=== PATIENT | female | born 1990 | race Caucasian/White ===

== ENCOUNTER 2017-04-03 07:10 | Emergency (ER) | payer OTHER ==
--- NOTE | 2017-04-03 07:36 | PD ---
HPI Chief Complaint: Sprague Act Time Seen by Provider: 07:30 Travel History International Travel<30 days: No Contact w/Intl Traveler<30days: No History of Present Illness HPI 26-year-old Kitt[place] female, brought in by police under the Sprague act. Patient was reportedly "cutting her forearms and wrists" with a safety pin. Patient denies suicidal ideation. Patient does admit that she may be depressed however. Patient recently moved here from [place] with her new baby's father approximately 1 month ago. Patient states she is 3 months status post which is well-healed. Patient states she is wanting to move back to [place], but her baby's father wants to stay here in [place]. Patient denies any other medical issues currently. She denies cutting anywhere about her forearms bilaterally with a safety pin. Patient is allergic to penicillin.. PFSH Social History Alcohol Use: No Tobacco Use: No Substance Use: No Review of Systems Except as stated in HPI: all other systems reviewed are Neg General / Constitutional: No: Fever, Chills Eyes: No: Visual changes HENT: No: Headaches Cardiovascular: No: Chest Pain or Discomfort Respiratory: No: Cough, Shortness of Breath Gastrointestinal: No: Nausea, Vomiting, Diarrhea, Abdominal Pain Genitourinary: No: Urgency, Frequency, Dysuria, Vaginal Bleeding Musculoskeletal: No: Pain Skin: Positive Lesions (See history of present illness), No Rash Neurologic: No: Weakness Psychiatric: Positive: Depression, No: Anxiety, Suicidal Ideations, Disorder of Thought, Mood Disorder, Substance Abuse, Homicidal Ideation Endocrine: No: Polydipsia Hematologic/Lymphatic: No: Easy Bruising Physical Exam Narrative GENERAL: The patient appears sad but otherwise in no acute distress SKIN: Warm and dry. Normal color. Normal turgor. Patient has multiple very superficial abrasions to both forearms from safety needle. These are not bleeding. They do not require bandaging or any type of closure. Patient has a well-healed scar in the lower abdomen. HEAD: Atraumatic. Normocephalic. EYES: Pupils equal and round. No scleral icterus. No injection or drainage. ENT: No nasal bleeding or discharge. Mucous membranes pink and moist. Pharynx is clear. Airway is patent. NECK: Trachea midline. No JVD. CARDIOVASCULAR: Regular rate and rhythm. RESPIRATORY: No accessory muscle use. Clear to auscultation. Breath sounds equal bilaterally. GASTROINTESTINAL: Abdomen soft, non-tender, nondistended. Hepatic and splenic margins not palpable. MUSCULOSKELETAL: Extremities without clubbing, cyanosis, or edema. No obvious deformities. NEUROLOGICAL: Awake and alert. No obvious cranial nerve deficits. Motor grossly within normal limits. Five out of 5 muscle strength in the arms and legs. Normal speech. PSYCHIATRIC: Appropriate mood and affect; insight and judgment normal. Data Data Orders Orders Complete Blood Count With Diff (04/03/17 07:15) Comprehensive Metabolic Panel (04/03/17 07:15) Thyroid Stimulating Hormone (04/03/17 07:15) Urinalysis - C+S If Indicated (04/03/17 07:15) Psych Screen (04/03/17 07:15) Drug Screen, Random Urine (04/03/17 07:15) Alcohol (Ethanol) (04/03/17 07:15) MDM Medical Decision Making Medical Screen Exam Complete: Yes Emergency Medical Condition: Yes Differential Diagnosis Sprague act. Depression. Suicidal ideation. . Multiple life stressors. Narrative Course Patient is medically stable at time of exam Labs ordered as per protocol including urine test. Patient is medically cleared for psychiatric evaluation. Condition: Stable En Stein Apr 03, 2017 07:36
[2017-04-03 08:04] VITALS: BP 120/81; PULSE 80; RESP 15; TEMP 98; O2SAT 99
[2017-04-03 08:06] LABS: AUTOMATED NEUTROPHIL # 4.6 TH/MM3 (1.8-7.7); BASOPHIL % 0.2 % (0.0-2.0); EOSINOPHIL # 0.1 TH/MM3 (0-0.4); EOSINOPHIL % 1.5 % (0.0-4.0); HEMATOCRIT 39.2 % (35.0-46.0); HEMOGLOBIN 13.2 GM/DL (11.6-15.3); LYMPH % 25.7 % (9.0-44.0); LYMPHOCYTE # 1.8 TH/MM3 (1.0-4.8); MEAN CELL VOLUME 88.4 FL (80.0-100.0); MEAN CORPUSCULAR HEMOGLOBIN 29.7 PG (27.0-34.0); MEAN CORPUSCULAR HGB CONC 33.6 % (32.0-36.0); MEAN PLATELET VOLUME 10.1 FL (7.0-11.0); MONO % 7.3 % (0.0-8.0); MONOCYTE # 0.5 TH/MM3 (0-0.9); NEUT % 65.3 % (16.0-70.0); PLATELET COUNT 236 TH/MM3 (150-450); RED BLOOD COUNT 4.43 MIL/MM3 (4.00-5.30); RED CELL DISTRIBUTION WIDTH 15.3 % (11.6-17.2)
[2017-04-03 08:10] LABS: BACTERIA, URINE MANY /hpf; BILIRUBIN, URINE NEG (NEG); BLOOD, URINE NEG (NEG); GLUCOSE,URINE NEG (NEG); KETONE, URINE NEG (NEG); MUCUS URINE FEW /lpf (OCC); NITRITE,URINE POS (NEG); SQUAMOUS EPITHELIAL CELL URINE <1 /hpf (0-5); URINE COLOR YELLOW (YELLW/STRAW); URINE LEUKOCYTE ESTERASE NEG (NEG)
[2017-04-03 08:28] LABS: ALBUMIN 3.9 GM/DL (3.4-5.0); ALT (GPT) 18 U/L (10-53); AST (GOT) 6 U/L (15-37); BICARBONATE 23.4 MEQ/L (21.0-32.0); BLOOD UREA NITROGEN 13 MG/DL (7-18); CALCIUM 8.6 MG/DL (8.5-10.1); CHLORIDE 109 MEQ/L (98-107); CREATININE 0.46 MG/DL (0.50-1.00); GLOMERULAR FILTRATION RATE 162 ML/MIN (>89); GLUCOSE,RANDOM 91 MG/DL (74-106); SODIUM (NA) 141 MEQ/L (136-145)
[2017-04-03 08:38] LABS: ALKALINE PHOSPHATASE 76 U/L (45-117); TOTAL BILIRUBIN ADULT 0.3 MG/DL (0.2-1.0); TOTAL PROTEIN 7.3 GM/DL (6.4-8.2)
[2017-04-03] MEDS ORDERED: CEPH-460 PO (09:29)
--- NOTE | 2017-04-03 13:54 | PD.PSY.CON ---
Provisional Diagnosis Admission Date Benedict I. Adjustment disorder with depressed mood Benedict II. Deferred Benedict III. No significant medical history Benedict IV. Conflicts with her Benedict V. 60 History of Present Illness Service Psychiatry Consult Requested By ER team Reason for Consult Sprague at Primary Care Physician No Primary Care Physician HPI The patient was seen April 03, 2017 at 8:30 AM The patient is a 26-year-old [place] woman, domiciled with her in a hotel in [facility], she is originally from [place], unemployed, supported by her , mother of 3 kids, no previous psychiatric history, no previous suicidal attempts, no hospitalizations, history of self cutting behavior with no SI, as a way to cope with anxiety, cannabis use disorder, no significant medical history, who was brought in by police under the Sprague act. Patient was reportedly "cutting her forearms and wrists" with a safety pin to release anxiety. The patient was brought to the ER under Sprague act due to suicidal behavior after an argument with her . Chart was reviewed. Patient was seen in the main ER, she was accompanied with her 9 months old baby and with her . On psychiatric evaluation the patient is calm, cooperative, very pleasant. The patient reports that she has been under some stress with her because he has not been working steadily, he has been afraid of becoming homeless, and she has been asking him to let her go back to live with her mother [place] and he has been refusing. This morning they engage in an argument, she feels distressed, and expressed suicidal statement, but she doesn' t really mean that. The patient denies suicidal and homicidal ideation, she denies visual and auditory hallucinations. The patient says that she has 2 living with his father in [place], she has her 9 most all baby that she loves and has to take care of. No paranoia, no delusions, no agitation or aggressive behavior present. The patient denies the use of alcohol, she reports almost daily use of cannabis. I spoke with her Angus Mazariegos, with states that he doesn't really have any safety concern at this moment and he would feel safe taking his back with him watching her. Review of Systems Constitutional: DENIES: Diaphoretic episodes, Fatigue, Fever, Weight gain, Weight loss, Chills, Dizziness, Change in appetite, Night Sweats Endocrine: DENIES: Abnorml menstrual pattern, Heat/cold intolerance, Polydipsia , Polyuria, Polyphagia Eyes: DENIES: Blurred vision, Diplopia, Eye inflammation, Eye pain, Vision loss , Photosensitivity, Double Vision Ears, nose, mouth, throat: DENIES: Tinnitus, Hearing loss, Vertigo, Nasal discharge, Oral lesions, Throat pain, Hoarseness, Ear Pain, Running Nose, Epistaxis, Sinus Pain, Toothache, Odynophagia Respiratory: DENIES: Apneas, Cough, Snoring, Wheezing, Hemoptysis, Sputum production, Shortness of breath Cardiovascular: DENIES: Chest pain, Palpitations, Syncope, Dyspnea on Exertion , PND, Lower Extremity Edema, Orthopnea, Claudication Gastrointestinal: DENIES: Abdominal pain, Black stools, Bloody stools, Constipation, Diarrhea, Nausea, Vomiting, Difficulty Swallowing, Anorexia Genitourinary: DENIES: Abnormal vaginal bleeding, Dysmenorrhea, Dyspareunia, Sexual dysfunction, Urinary frequency, Urinary incontinence, Urgency, Hematuria , Dysuria, Nocturia, Vaginal discharge Musculoskeletal: DENIES: Joint pain, Muscle aches, Stiffness, Joint Swelling, Back pain, Neck pain Integumentary: DENIES: Abnormal pigmentation, Pruritus, Rash, Nail changes, Breast masses, Breast skin changes, Nipple discharge Hematologic/lymphatic: DENIES: Bruising, Lymphadenopathy Immunologic/allergic: DENIES: Eczema, Urticaria Neurologic: DENIES: Abnormal gait, Headache, Localized weakness, Paresthesias, Seizures, Speech Problems, Tremor, Poor Balance Psychiatric: DENIES: Anxiety, Confusion, Mood changes, Depression, Hallucinations, Agitation, Suicidal Ideation, Homicidal Ideation, Delusions Past Family Social History Coded Allergies: amoxicillin (Verified Allergy, Intermediate, Swelling, 04/03/17) codeine (Verified Allergy, Intermediate, Swelling, 04/03/17) Active Scripts Cephalexin (Keflex) 500 Mg Cap, 500 MG PO Q8H for Infection for 7 Days, #21 CAP 0 Refills Prov:Kartik Buck MD 04/03/17 Family Psych History No family psychiatric history Social History Patient was born and raised in [place], she now lives in [place], he is hear [facility] living in a hotel 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 2) No previous significant history Physical Exam No tremors, no EPS, Vital Signs Vital Signs Date Time Temp Pulse Resp B/P (MAP) Pulse Ox O2 Delivery O2 Flow Rate FiO2 04/03/17 09:25 04/03/17 08:04 98.0 80 15 99 Room Air Lab Results Test 04/03/17 07:30 White Blood Count 7.0 TH/MM3 Red Blood Count 4.43 MIL/MM3 Hemoglobin 13.2 GM/DL Hematocrit 39.2 % Mean Corpuscular Volume 88.4 FL Mean Corpuscular Hemoglobin 29.7 PG Mean Corpuscular Hemoglobin Concent 33.6 % Red Cell Distribution Width 15.3 % Platelet Count 236 TH/MM3 Mean Platelet Volume 10.1 FL Neutrophils (%) (Auto) 65.3 % Lymphocytes (%) (Auto) 25.7 % Monocytes (%) (Auto) 7.3 % Eosinophils (%) (Auto) 1.5 % Basophils (%) (Auto) 0.2 % Neutrophils # (Auto) 4.6 TH/MM3 Lymphocytes # (Auto) 1.8 TH/MM3 Monocytes # (Auto) 0.5 TH/MM3 Eosinophils # (Auto) 0.1 TH/MM3 Basophils # (Auto) 0.0 TH/MM3 CBC Comment DIFF FINAL Differential Comment Urine Color YELLOW Urine Turbidity CLEAR Urine pH 6.0 Urine Specific [place] 1.025 Urine Protein NEG mg/dL Urine Glucose (UA) NEG mg/dL Urine Ketones NEG mg/dL Urine Occult Blood NEG Urine Nitrite POS Urine Bilirubin NEG Urine Urobilinogen LESS THAN 2.0 MG/DL Urine Leukocyte Esterase NEG Urine RBC 1 /hpf Urine WBC 3 /hpf Urine Squamous Epithelial Cells <1 /hpf Urine Bacteria MANY /hpf Urine Mucus FEW /lpf Microscopic Urinalysis Comment CULTURE INDICATED Blood Urea Nitrogen 13 MG/DL Creatinine 0.46 MG/DL Random Glucose 91 MG/DL Total Protein 7.3 GM/DL Albumin 3.9 GM/DL Calcium Level 8.6 MG/DL Alkaline Phosphatase 76 U/L Aspartate Amino Transf (AST/SGOT) 6 U/L Alanine Aminotransferase (ALT/SGPT) 18 U/L Total Bilirubin 0.3 MG/DL Sodium Level 141 MEQ/L Potassium Level 3.6 MEQ/L Chloride Level 109 MEQ/L Carbon Dioxide Level 23.4 MEQ/L Anion Gap 9 MEQ/L Estimat Glomerular Filtration Rate 162 ML/MIN Thyroid Stimulating Hormone 3rd Gen 1.470 uIU/ML Urine Opiates Screen NEG Urine Barbiturates Screen NEG Urine Amphetamines Screen NEG Urine Benzodiazepines Screen NEG Urine Cocaine Screen NEG Urine Cannabinoids Screen POS Ethyl Alcohol Level LESS THAN 3 MG/DL Date/Time Source Procedure Growth Status 04/03/17 07:30 Urine Random Urine Urine Culture Pending Received Mental Status Examination Appearance: Appropriate Consciousness: Alert Orientation: x4 Motor Activity: Normal gait Speech: Unremarkable Language: Adequate Fund of Knowledge: Adequate Attention and Concentration: Adequate Memory: Unremarkable Mood: Appropriate Affect: Appropriate Thought Process & Associations: Intact Thought Content: Appropriate Hallucination Type: None Delusion Type: None Suicidal Ideation: No Suicidal Plan: No Suicidal Intention: No Homicidal Ideation: No Homicidal Plan: No Homicidal Intention: No Insight: Adequate Judgment: Adequate Assessment & Plan Problem List: (1) Adjustment disorder with disturbance of conduct ICD Codes: F43.24 - Adjustment disorder with disturbance of conduct Assessment & Plan: On psychiatric evaluation today the patient doesn't present any acute, concerning for significant objective or subjective symptomatology of depression, anxiety, boom or psychosis. She denies suicidal and homicidal ideation, she denies visual and auditory hallucinations. Her recent suicidal gesture/self cutting behavior seems to be a maladaptive coping skills to release anxiety and no suicidal attempt. Patient has some very well identifiable protective factors. She does not meet criteria for involuntary psychiatric admission at this moment. Brief supportive psychotherapy provided. Sprague act will be lifted. Assessment & Plan Estimated LOS: Arnaud Gastelum MD Apr 03, 2017 13:54
== END 2017-04-03 09:50 | disposition home or self-care (01) ==
LOC: NEPD 07:10
DX: F43.21 Adjustment disorder with depressed mood (principal); F41.9 Anxiety disorder, unspecified; N39.0 Urinary tract infection, site not specified; B96.20 Unspecified Escherichia coli [E. coli] as the cause of diseases classified elsewhere; Z88.0 Allergy status to penicillin; Z91.5 Personal history of self-harm
CPT/HCPCS: 80053; 80307; 81001; 84443; 84703; 85025; 87077; 87086; 87186; 99283